=== PATIENT | female | born 1980 | race Caucasian/White ===

== ENCOUNTER 2020-07-22 08:36 | Emergency (ER) | payer OTHER, BC, SELFPAY ==
[2020-07-22 08:45] VITALS: BP 151/99; PULSE 74; RESP 16; TEMP 36.7; O2SAT 100
--- NOTE | 2020-07-22 09:13 | ED.DENTAL ---
HPI - Dental/Oral General Chief complaint: Dental/Oral Stated complaint: mouth injury Time Seen by Provider: 07/22/20 09:00 Source: patient and RN notes reviewed Mode of arrival: ambulatory Limitations: no limitations History of Present Illness HPI Narrative: 40 year old female who presents to [facility] care with complaints of getting hit in the mouth with hose yesterday at work causing chipping to her front 2 teeth. Patient states minimal soreness to anterior gums of the teeth, no swelling or any damage to gums noted, no loose teeth noted. Patient states that her boss told her to come her to get referral to dentist to repair teeth. MD Complaint: tooth injury Location: Tooth # (# 8,#9) Onset (ago): day(s) (1) Context: trauma (mechanism) Treatment prior to arrival: none Related Data Home Medications Medication Instructions Recorded Confirmed No Home Medications 07/22/20 07/22/20 Allergies Allergy/AdvReac Type Severity Reaction Status Date / Time latex Allergy Unknown Verified 07/22/20 08:54 Sulfa (Sulfonamide Allergy Unknown Verified 07/22/20 08:54 Antibiotics) Review of Systems Review of Systems: Narrative: CONSTITUTIONAL: Denies fever, chills, or sweats. EYES: Denies visual changes, redness, or discharge. ENT: Denies rhinorrhea, congestion, sore throat, or otalgia.minimal soreness to anterior gums front 2 upper teeth with chipping of bottom of both teeth noted.. CARDIOVASCULAR: Denies chest pain, palpitations, or edema. RESPIRATORY: Denies cough or dyspnea. GASTROINTESTINAL: Denies abdominal pain, nausea, vomiting, or diarrhea. GENITOURINARY: Denies dysuria or hematuria. SKIN: Denies rash or itching. MUSCULOSKELETAL: Denies back pain, joint pain, or myalgia. NEUROLOGIC: Denies headache, numbness, or weakness. PSYCHIATRIC: Denies anxiety or depression. All systems reviewed & are unremarkable except as noted in HPI and below PMFSH Past Medical History Medical History (Updated 07/23/20 @ 11:05 by Annette Enamorado NP) No pertinent past medical history Surgical History Surgical History (Updated 07/23/20 @ 10:50 by Annette Enamorado NP) No history of previous surgery Family History Family History (Updated 07/23/20 @ 10:51 by Annette Enamorado NP) Other No significant family history Social History Social History (Updated 07/23/20 @ 10:51 by Annette Enamorado NP) Smoking status: Never smoker Alcohol intake: current Alcohol use details: rare social Substance use: never Living arrangements: with family Gender identity (if verbalized by the patient): Female Comments At time of signature, agree with nursing past medical, surgical, social and family history. There is no relevant family history pertinent to the presenting complaint Exam Narrative: Exam Narrative: GENERAL: Well-appearing, well-nourished, and in no acute distress. HEAD: Normocephalic, atraumatic. EYES: PERRLA and EOMI. ENT: Nares clear, no rhinorrhea or epistaxis. Mucous membranes moist.TM's normal with good light reflex, throat pink with no exudates or lesions no tonsil enlargement, front upper teeth chipped at bottom of teeth #8and #9from trauma at work yesterday, gums pink with no swelling or redness, no loose teeth NECK: Supple.no lymphadenopathy CHEST: Clear to auscultation. No respiratory distress.SAO2 100% on room air HEART: Regular rate and rhythm. No murmur heard. Normal peripheral pulses. ABDOMEN: Soft, nontender, nondistended, normal active bowel sounds. EXTREMITIES: Normal range of motion. No edema. SKIN: Warm, dry, no rash. NEURO: No focal deficits. Alert and oriented x3. Course Vital Signs Vital signs: Vital Signs Temperature 36.7 C 07/22/20 08:45 Pulse Rate 74 07/22/20 08:45 Respiratory Rate 16 07/22/20 08:45 Blood Pressure 151/99 H 07/22/20 08:45 Pulse Oximetry 100 07/22/20 08:45 Temperature 36.7 C 07/22/20 08:45 Pulse Rate 74 07/22/20 08:45 Respiratory Rate 16 0
== END 2020-07-22 09:44 | disposition home or self-care (01) ==
PROVIDERS: Emergency Provider Registered Nurse
DX: S09.93XA Unspecified injury of face, initial encounter (principal); S02.5XXA Fracture of tooth (traumatic), initial encounter for closed fracture; W22.8XXA Striking against or struck by other objects, initial encounter; Y99.0 Civilian activity done for income or pay
CPT/HCPCS: 99212; G0463